=== PATIENT | male | born 1990 | race Hispanic/Latino ===

== ENCOUNTER 2018-09-12 13:03 | Emergency (ER) | payer OTHER | END 2018-09-12 13:36 | LOC: EDH 13:03 | DX: Z02.83 Encounter for blood-alcohol and blood-drug test (principal) ==

== ENCOUNTER 2024-01-08 22:16 | Emergency (ER) | payer BC ==
[~2024-01-08] VITALS: Ht 172.7 cm; Wt 87.1 kg
--- NOTE | 2024-01-08 22:46 | ERN ---
ED Note History of Present Illness Stated Complaint: C/O ABD PAIN TO LEFT SIDE Chief Complaint: Abdominal Pain Time Seen by MD: 22:19 Dictation: Patient is a 33-year-old male states he was work this morning when he suddenly had a hard sneeze, felt pain to his left lateral lower chest rib cage. He has not taken anything prior to arrival for pain have no abdominal pain no change in urination no fever no chills. No primary care doctor. Allergies: Coded Allergies: No Known Allergies (Unverified Allergy, Unknown, 01/08/24) Past Medical History Past Medical History: No Pertinent History Surgical History: Tonsillectomy RN Note Reviewed/Agreed w/PFSH: Yes Review of System Dictation CONSTITUTIONAL: Negative except for HPI HEAD/FACE: Negative except for HPI EENT: Negative except for HPI RESPIRATORY: Negative except for HPI left lateral inferior chest wall tenderness pain GASTROINTESTINAL/ABDOMINAL: Negative except for HPI GENITOURINARY: Negative except for HPI MUSCULOSKELETAL: Negative except for HPI INTEGUMENTARY: Negative except for HPI NEUROLOGICAL/PSYCH: Negative except for HPI HEMATOLOGIC/LYMPHATIC: Negative except for HPI All Systems Negative, Except as noted above. 13 point review of systems assessed and all negative except for above. Initial Vital Sign VS Vital Signs Date Time Temp Pulse Resp B/P (MAP) Pulse Ox O2 Delivery O2 Flow Rate FiO2 01/08/24 22:19 98.2 76 20 110/78 99 Room Air 01/08/24 23:18 0 21 Physical Exam Dictation Vital Signs reviewed General Appearance: Alert, oriented x 3, moderate acute distress, well devel oped, nourished. Head and Face: non-traumatic. Eyes: PERRL, pink conjunctivas, eyelid no trauma, anterior chamber with arcus se nilis. Ears: Pinnas intact and no signs of trauma or erythema ear canals clear and no discharge TM no erythema Nose: No discharge, no bleeding. Oropharynx: Mouth normal, tongue pink, pharynx clear,no erythema, tonsils no exudates, no abscesses noted, mucous membrane moist Neck: Supple, non-tender, no thyromegaly, no masses, no JVD, no bruits Breast:Deferred Chest: Moderate left lateral inferior chest wall tenderness with palpation tenderness, no crepitus, no paradoxical movement, no retractions no flail T bilateral breath sounds clear Lungs:Clear, well-ventilated, symmetric, no rales, no wheezing, no rhonchi, no stridor, good breath sounds bilaterally Heart: Regular rate, regular rhythm, no murmur, no gallops Vascular: no peripheral edema, Abdomen: Soft, positive bowel sounds, nondistended, no guarding, nontender, no rebound, no masses no hepatomegaly, no splenomegaly, no Zhou's sign, no hernias. Rectal: Deferred Genital: Deferred Neurological: Normal speech, motor function intact, sensory function intact Musculoskeletal: Neck nontender, full range of motion, back nontender, full range of motion, Extremities: nontender, full range of motion Skin: Color pink, dry, no turgor, no rash, no lacerations, no abrasions, no contusions. Lymphatic: Deferred Results (Laboratory/Radiology) Laboratory/Radiology Laboratory Tests Test 01/08/24 22:34 Urine Color LIGHT-YELLOW (YELLOW) Urine Appearance CLEAR (CLEAR) Urine pH 6.5 (5.0-8.0) Urine Specific Proctor 1.025 (1.001-1.031) Urine Protein NEGATIVE mg/dL (NEGATIVE) Urine Glucose (UA) NEGATIVE mg/dL (NEGATIVE) Urine Ketones NEGATIVE mg/dL (NEGATIVE) Urine Occult Blood NEGATIVE (NEGATIVE) Urine Nitrate NEGATIVE (NEGATIVE) Urine Bilirubin NEGATIVE mg/dL (NEGATIVE) Urine Urobilinogen 0.2 mg/dL (0.2-1.0) Urine Leukocyte Esterase NEGATIVE Yobany/uL RIBS UNI LT W PA CHEST 3+VWS REASON: Left lateral inferior chest wall tenderness after sneezed this morning. COMPARISON: None TECHNIQUE: Frontal projection of the chest was obtained. 3 images of left ribs were obtained. FINDINGS: No acute pulmonary infiltrates is seen. The heart is borderline in size. No acute displaced fracture of left ribs are noted. IMPRESSION: Findings as described above. Labs Reviewed?: Yes ED Course ED Course Orders Procedure Category Date Status Time Ribs Uni Lt W Pa RAD 01/08/24 Resulted Chest 3+Vws 22:44 Ketorolac 60mg/2ml PHA 01/08/24 Complete (Toradol 60mg/2ml) 23:00 Urinalysis Profile LAB 01/08/24 Complete 23:01 Current Medications Medications (Trade) Dose Ordered Sig/Lemuel Route PRN Reason Start Time Stop Time Status Last Admin Dose Admin Ketorolac Tromethamine (toRADol 60MG/ 2ML) 60 mg ONCE ONCE IM 01/08/24 23:00 01/08/24 23:01 DC 01/08/24 23:18 Vital Signs Date Time Temp Pulse Resp B/P (MAP) Pulse Ox O2 Delivery O2 Flow Rate FiO2 01/08/24 23:18 98.2 82 18 110/67 99 Room Air* 0 21 01/08/24 22:19 98.2 76 20 110/78 99 Room Air 0020 PAIN IS MARKEDLY IMPROVED AFTER TORADOL. DISCHARGED HOME WITH CHEST WALL STRAIN TOLD TO FOLLOW UP WITH HIS DOCTOR IN 1-2 DAYS Medical Decision Making MDM MEDICAL DISCHARGE MAKING BASED ON LEFT RIB X-RAY AND PAIN MANAGEMENT. RIB SERIES NEGATIVE DISCHARGED HOME WITH CHEST WALL STRAIN AND IBUPROFEN DX & DISP Disposition: Discharge Departure Impression: Primary Impression: Muscle strain of chest wall Condition: Stable Scripts Ibuprofen (Ibuprofen 800 mg Tab) 800 Mg Tab 800 MG PO Q8H PRN for fever or pain, #30 TAB 0 Refills Prov: ANGELA WATT NP 01/09/24 Additional Instructions: FOLLOW-UP WITH PRIMARY CARE PROVIDER IN 1 TO 2 DAYS. TAKE MEDICATIONS DIRECTED HERE IN THE EMERGENCY ROOM. OKAY TO CONTINUE HOME MEDICATIONS UNLESS OTHERWISE DISCUSSED DURING YOUR VISIT IN THE EMERGENCY ROOM TODAY. RETURN TO YOUR NEAREST EMERGENCY ROOM IF SYMPTOMS WORSEN OR IF THERE IS NO IMPROVEMENT. CALL 911 IF YOU NEED IMMEDIATE ASSISTANCE. TAKE TYLENOL OR MOTRIN [id number] NEEDED AND IF NO CONTRAINDICATIONS ARE PRESENT. INCREASE ORAL HYDRATION. A WOUND CULTURE OR URINE CULTURE WAS ORDERED HERE IN THE EMERGENCY ROOM DEPARTMENT PLEASE FOLLOW-UP WITH PRIMARY CARE PROVIDER AND ADVISE THEM TO GET REPEAT PORTS FROM OUR FACILITY. IF YOU HAD ANY SANDRA WRAP/SPLINTS THAT WERE APPLIED HERE, PLEASE DO NOT REMOVE THEM UNTIL YOU SEE YOUR PRIMARY CARE OR SPECIALTY. TAKE IBUPROFEN EVERY 8 HOURS WITH FOOD FOR THE NEXT TWO DAYS. FOLLOW UP WITH YOUR PRIMARY CARE DOCTOR CLINIC IN 1-2 DAYS. Referrals: SELF,REFERRAL (PCP) Time of Disposition: 00:24 I have reviewed the case, and I agree with, Diagnosis and Plan ANGELA WATT NP Jan 08, 2024 22:46
[2024-01-08 23:13] LABS: APPEARANCE,URINE CLEAR (CLEAR); BILIRUBIN,URINE NEGATIVE (NEGATIVE); COLOR,URINE LIGHT-YELLOW (YELLOW); GLUCOSE, URINE (UA) NEGATIVE (NEGATIVE); KETONES,URINE NEGATIVE (NEGATIVE); LEUKOCYTE ESTERASE ,URINE NEGATIVE Leu/uL (NEGATIVE); NITRATE,URINE NEGATIVE (NEGATIVE); OCCULT BLOOD,URINE NEGATIVE (NEGATIVE); PH,URINE 6.5 (5.0-8.0); PROTEIN,URINE NEGATIVE (NEGATIVE); UROBILINOGEN,URINE 0.2 mg/dL (0.2-1.0)
[2024-01-08 23:16] LABS: ADD UA MICROSCOPIC NO
[2024-01-08 23:18] VITALS: PULSE 82
[2024-01-08] MEDS: ketOROlac 60 MG VIAL (30MG/ML) IM ONE (23:18)
--- NOTE | 2024-01-08 23:44 | HMCIMG ---
RIBS UNI LT W PA CHEST 3+VWS REASON: Left lateral inferior chest wall tenderness after sneezed this morning. COMPARISON: None TECHNIQUE: Frontal projection of the chest was obtained. 3 images of left ribs were obtained. FINDINGS: No acute pulmonary infiltrates is seen. The heart is borderline in size. No acute displaced fracture of left ribs are noted. IMPRESSION: Findings as described above.
[2024-01-09] MEDS ORDERED: IBUP-2077 PO (00:25)
[2024-01-09 00:29] VITALS: BP 125/65; RESP 18; TEMP 98; O2SAT 99
[2024-01-10] MEDS ORDERED: OMEP20CA12 PO (16:22)
== END 2024-01-09 00:33 | disposition home or self-care (01) ==
LOC: EDH 22:16
DX: S29.011A Strain of muscle and tendon of front wall of thorax, initial encounter (principal); Z90.89 Acquired absence of other organs; X50.1XXA Overexertion from prolonged static or awkward postures, initial encounter; Y93.89 Activity, other specified; Y92.89 Other specified places as the place of occurrence of the external cause; Y99.8 Other external cause status
CPT/HCPCS: 99284; 81003; 71101; 96372; J1885

== ENCOUNTER 2024-01-10 14:25 | Emergency (ER) | payer BC ==
[~2024-01-10] VITALS: Ht 172.7 cm; Wt 86.6 kg
[~2024-01-10 14:25] MED LIST: IBUP-2077 PO
--- NOTE | 2024-01-10 15:08 | ERN ---
General Chief Complaint: Abdominal Pain Stated Complaint: ABD PAIN Time Seen by MD: 14:29 History of Present Illness Initial Comments 33-year-old male with a history of acid reflux presents to the ED for evaluation of abdominal pain onset 3 days ago. Patient reports bilateral flank pain, back pain, nausea, but denies any fever, vomiting, diarrhea, hematuria or any other associated symptoms at this time. Patient mentioned he has been experiencing bilateral flank pain also epigastric pain. Patient reports he drank alcohol on Friday. No other medical or surgical history mentioned. Allergies: Coded Allergies: No Known Allergies (Unverified Allergy, Unknown, 01/08/24) Home Meds Active Scripts Ibuprofen (Ibuprofen 800 mg Tab) 800 Mg Tab, 800 MG PO Q8H PRN for fever or pain, #30 TAB 0 Refills Prov:ANGELA WATT NP 01/09/24 Past Medical History Past Medical History: GERD Past Surgical History: Other Surgical History Other: INGUINAL HERANIA REPAIR ROS Dictation Constitutional: Negative for fever,chills, and weight loss Eyes: Negative for injury, pain,redness, and discharge ENT: Negative for injury,pain or swelling Cardiovascular: Negative for chest pain, palpitations, and edema Respiratory: Negative for shortness of breath, cough, and wheezing, Abdomen/GI: Positive for abdominal pain, epigastric pain, bilateral flank pain, nausea negative for vomiting, diarrhea, and constipation Back: Negative for injury and pain : Negative for injury, bleeding and discharge MS/Extremity: Negative for injury and deformity Skin: Negative for rash, and discoloration Neuro: Negative for headache, weakness, numbness, tingling, and seizure Psych: Negative for suicide ideation, homicidal ideation, and hallucinations Physical Exam Physical Exam Dictation General: awake, alert, NAD Head/Face: Normocephalic, atraumatic Eyes: PERRL, EOMI, vision at baseline ENT: oral cavity clear, TMs clear, no signs of infection Neck: Trachea midline, supple, no nuchal rigidity Cardiovascular: RRR, normal S1/S2, No MRGs, no JVD Respiratory: CTAB, no respiratory distress, No rales or wheezes Abdomen: Soft, mild epigastric tenderness, bilateral flank tenderness non- distended Skin: Warm, dry, normal turgor, no rash MS/Extremity: Pulses equal, no cyanosis, neurovascular intact, FROM Neuro: COAx4, GCS 15, strength 5/5, CN 2-12 intact, normal cerebellar exam, normal gait, Psych: Normal behavior, mood, and affect normal Results Laboratory and Microbiology Lab and Micro Result Laboratory Tests Test 01/10/24 15:10 White Blood Count 8.3 K/uL (4.8-10.8) Red Blood Count 5.10 MIL/uL (4.50-6.20) Hemoglobin 15.1 g/dL (14.0-18.0) Hematocrit 43.0 % (42-54) Mean Corpuscular Volume 84.3 fL (79-99) Mean Corpuscular Hemoglobin 29.6 pg (27.0-33.0) Mean Corpuscular Hemoglobin Concent 35.1 g/dL (32.0-36.0) Red Cell Distribution Width 12.0 % (11.0-15.5) Platelet Count 276 K/uL (130-400) Mean Platelet Volume 9.6 fL (7.5-10.5) Immature Granulocyte % (Auto) 0.4 % (0-1) Neutrophils (%) (Auto) 75.0 % (40.0-77.0) Lymphocytes (%) (Auto) 15.3 % (21.0-51.0) L Monocytes (%) (Auto) 7.7 % (3.0-13.0) Eosinophils (%) (Auto) 1.4 % (0.0-8.0) Basophils (%) (Auto) 0.2 % (0.0-5.0) Neutrophils # (Auto) 6.2 K/uL (1.8-7.7) Lymphocytes # (Auto) 1.3 K/uL (1.0-4.8) Monocytes # (Auto) 0.6 K/uL (0.1-1.0) Eosinophils # (Auto) 0.12 K/uL (0.00-0.70) Basophils # (Auto) 0.02 K/uL (0.00-0.20) Absolute Immature Granulocyte (auto 0.03 K/uL (0-1) Nucleated Red Blood Cells 0.0 % (0.0-0.19) Urine Color LIGHT-YELLOW (YELLOW) Urine Appearance HAZY (CLEAR) Urine pH 7.5 (5.0-8.0) Urine Specific [place] 1.011 (1.001-1.031) Urine Protein NEGATIVE mg/dL (NEGATIVE) Urine Glucose (UA) NEGATIVE mg/dL (NEGATIVE) Urine Ketones NEGATIVE mg/dL (NEGATIVE) Urine Occult Blood NEGATIVE (NEGATIVE) Urine Nitrate NEGATIVE (NEGATIVE) Urine Bilirubin NEGATIVE mg/dL (NEGATIVE) Urine Urobilinogen 0.2 mg/dL (0.2-1.0) Urine Leukocyte Esterase NEGATIVE Yobany/uL Urine RBC 0-1 /HPF (0-1) Urine WBC 0-1 /HPF (0-1) Urine Amorphous Crystals (Auto) FEW /LPF (None Seen) Urine Bacteria RARE /HPF (None Seen) Sodium Level 140 mmol/L (136-145) Potassium Level 3.7 mmol/L (3.5-5.1) Chloride Level 102 mmol/L (101-111) Carbon Dioxide Level 33 mmol/L (21-32) H Blood Urea Nitrogen 10 mg/dL (7-18) Creatinine 0.9 mg/dL (0.5-1.3) Glomerular Filtration Rate Calc 115 mL/min (>90) Random Glucose 100 mg/dL (70-105) Total Calcium 9.1 mg/dL (8.5-10.1) Total Bilirubin 0.7 mg/dL (0.2-1.0) Direct Bilirubin 0.1 mg/dL (0.0-0.3) Aspartate Amino Transf (AST/SGOT) 29 U/L (10-37) Alanine Aminotransferase (ALT/SGPT) 110 U/L (12-78) H Alkaline Phosphatase 64 U/L (50-136) Total Protein 7.6 g/dL (6.0-8.3) Albumin 4.0 g/dL (3.5-5.0) Lipase 43 U/L (16-77) MDM CC: Abdominal pain Historian: Patient Comorbidities: GERD Limitations by social determinants of health: None Vital signs are stable Differential diagnosis includes GERD, ulcer, pancreatitis, biliary disease, perforation, other. Clinical exam patient does have some abdominal tenderness in the upper area. No flank discomfort. Labs ordered and interpreted by me: CBC is normal, BNP is normal, liver enzymes are normal, lipase is normal, urinalysis is normal. CT scan of the abdomen and pelvis with contrast does not show any free air perforation or obvious abnormalities as independently interpreted by me. I did offer the patient pain control here in the ER, but reports that he had mostly wants diagnostics to make sure there is nothing significant going on. At this point in time patient appears safe for discharge. We will DC with [id number] medications recommend PCP follow up as needed. REASON: upper abd pain, radiates to back ORDERING PHYSICIAN: ABDI MERCADO DO PROCEDURE: ABD PEL W - CT ABDOMEN/PELVIS W/CONTRAST Exam Type: CT ABDOMEN/PELVIS W/CONTRAST Clinical Information: upper abd pain, radiates to back Comparison: None Contrast: 100 cc's Isovue 370 IV, no complications or adverse reactions CT Dose Index (CTDI): 31.60 mGy Dose Length Product (DLP): 1740.80 total mGy-cm Findings: No evidence of nephro or ureterolithiasis is found. No hydronephrosis or ureteral dilatation is seen. The lung bases are clear. The stomach is unremarkable. It shows no wall thickening. No gross ulceration is seen. It is not overly distended. There are no surrounding inflammatory changes. No wall lesions are identified to suggest cancer. The spleen is unremarkable. It is not enlarged. The pancreas shows normal anatomy. It is not fatty replaced. It shows no lesions. The pancreatic duct is not dilated. The gallbladder is unremarkable. It shows no cholelithiasis. The gallbladder wall is normal in thickness. There is no pericholecystic fluid. The is no acute or chronic inflammation noted. The adrenal glands are unremarkable. There is no enlargement. No lesions are noted. The liver is unremarkable. It shows no focal masses. The appendix is unremarkable. It shows no evidence of inflammation. No appendicolith is seen. The small bowel is unremarkable. There is no evidence of dilatation to suggest obstruction. No evidence of adynamic ileus is seen. There is no small bowel wall thickening to suggest enteritis. The colon is unremarkable. The urinary bladder is unremarkable. There is no wall thickening to suggest tumor or inflammation. There are no intraluminal calculi. There are no diverticula. There is no evidence of chronic bladder outlet obstruction. There is no evidence of urinary bladder distention to suggest urinary retention. The other pelvic structures are unremarkable. The bony and vascular structures are unremarkable for the patient's age. IMPRESSION: NEGATIVE CT SCAN OF THE ABDOMEN AND PELVIS WITH ORAL AND IV CONTRAST. This study was performed using dose reduction techniques to include automated exposure control and/or adjustment of the mA and/or kV according to patient size. DICTATED BY: ALEXUS WILDER MD DATE: 01/10/24 1608 MDM: Differential diagnosis: Pancreatitis, GERD, ulcer Previous outside records reviewed: Old ER visits. Need for hospitalization: Patient does not meet criteria for hospitalization. Need for emergency major/minor surgery: No Patient's prior external medical records from other ER visits were reviewed by me as indicated. Prior testing and results from previous visits were reviewed. Prior tests were taken into account with medical decision making and resource utilization, independent historian/historians were used to obtain complete medical history. I independently interpreted the test that were performed, results were reviewed by me and considered findings on radiology if ordered. Medical management and examination interpretation discussions were had by me with other qualified healthcare professionals as indicated for the patient's care. ED Course Orders Procedure Category Date Status Time Cbc With Differential LAB 01/10/24 Complete 14:31 Basic Metabolic Panel LAB 01/10/24 Complete 14:31 Hepatic Function Panel LAB 01/10/24 Complete 14:31 Urinalysis Profile LAB 01/10/24 Complete 14:31 Lipase LAB 01/10/24 Complete 14:31 Ct Abdomen/Pelvis CT 01/10/24 Resulted W/Contrast 15:09 Iohexol (Omnipaque) PHA 01/10/24 Complete 15:48 Current Medications Medications (Trade) Dose Ordered Sig/Lemuel Route PRN Reason Start Time Stop Time Status Last Admin Dose Admin Iohexol (Omnipaque) 75 ml STK-MED ONCE IV 01/10/24 15:48 01/10/24 15:48 DC Vital Signs Date Time Temp Pulse Resp B/P (MAP) Pulse Ox O2 Delivery O2 Flow Rate FiO2 01/10/24 15:26 98.2 71 20 120/68 100 Room Air* 0 21 01/10/24 15:01 98.2 82 16 134/72 99 Room Air* 0 21 01/10/24 14:28 98.2 82 16 134/72 99 Room Air 0 DX & DISP Disposition: Discharge Departure Impression: Primary Impression: Epigastric pain Condition: Stable Scripts Omeprazole (Omeprazole) 20 Mg Capsule. 1 CAP PO DAILY for 14 Days, #14 CAP 0 Refills Prov: ABDI MERCADO DO 01/10/24 Additional Instructions: There are no dangerous findings on your workup today. It is unclear what is causing your symptoms, but it may be related to stomach irritation/inflammation. I recommend that you take a proton pump inhibitor medication such as omeprazole. I have given you a prescription for the next two weeks. Take as prescribed. The CT scan of your abdomen and pelvis with contrast did not show any dangerous findings. Your lab work (CBC, BMP, liver function tests, lipase, urinalysis) is normal. I recommend diet modification. Avoid alcohol. Avoid spicy foods. Avoid large heavy meals. Avoid eating late at night. If you continue with symptoms, I recommend he follow up with the primary doctor as an outpatient. You may need further outpatient studies. Referrals: SELF,REFERRAL (PCP) I have reviewed, & agreed with my scribe's, documentation. (Entered by Bee Eli, acting as a scribe for Dr. Mercado) I personally scribed for ABDI MERCADO DO ([email or web address]) on 01/10/24 at 15:08. Electronically submitted by Bee Eli ([email or web address]). ABDI MERCADO DO Jan 10, 2024 15:08
[2024-01-10 15:20] LABS: BASOPHILS # (AUTO) 0.02 K/uL (0.00-0.20); BASOPHILS % (AUTO) 0.2 % (0.0-5.0); EOSINOPHILS # (AUTO) 0.12 K/uL (0.00-0.70); EOSINOPHILS % (AUTO) 1.4 % (0.0-8.0); IMMATURE GRANULOCYTE ABSOLUTE 0.03 K/uL (0-1); LYMPHOCYTES # (AUTO) 1.3 K/uL (1.0-4.8); LYMPHOCYTES % (AUTO) 15.3 % (21.0-51.0); MEAN CORPUSCULAR HEMOGLOBIN 29.6 pg (27.0-33.0); MEAN CORPUSCULAR HGB CONC 35.1 g/dL (32.0-36.0); MEAN CORPUSCULAR VOLUME 84.3 fL (79-99); MONOCYTES # (AUTO) 0.6 K/uL (0.1-1.0); MONOCYTES % (AUTO) 7.7 % (3.0-13.0); NEUTROPHILS # (AUTO) 6.2 K/uL (1.8-7.7); PLATELET COUNT (AUTO) 276 K/uL (130-400); WHITE BLOOD COUNT (AUTO) 8.3 K/uL (4.8-10.8)
[2024-01-10 15:21] LABS: BILIRUBIN,URINE NEGATIVE (NEGATIVE); COLOR,URINE LIGHT-YELLOW (YELLOW); GLUCOSE, URINE (UA) NEGATIVE (NEGATIVE); KETONES,URINE NEGATIVE (NEGATIVE); LEUKOCYTE ESTERASE ,URINE NEGATIVE Leu/uL (NEGATIVE); NITRATE,URINE NEGATIVE (NEGATIVE); OCCULT BLOOD,URINE NEGATIVE (NEGATIVE); PH,URINE 7.5 (5.0-8.0); PROTEIN,URINE NEGATIVE (NEGATIVE); UROBILINOGEN,URINE 0.2 mg/dL (0.2-1.0)
[2024-01-10 15:24] LABS: ADD UA MICROSCOPIC YES; APPEARANCE,URINE HAZY (CLEAR)
--- NOTE | 2024-01-10 15:27 | NUR ---
PENDING GFR RESULTS, IV SITE, & CONSENT FOR CT EXAM.
[2024-01-10 15:31] LABS: CREATININE 0.9 mg/dL (0.5-1.3); POTASSIUM 3.7 mmol/L (3.5-5.1)
[2024-01-10 15:32] LABS: BACTERIA,URINE RARE /HPF (None Seen); RBC,URINE 0-1 /HPF (0-1); WBC,URINE 0-1 /HPF (0-1)
[2024-01-10 15:36] LABS: BILIRUBIN,DIRECT 0.1 mg/dL (0.0-0.3); BILIRUBIN,TOTAL 0.7 mg/dL (0.2-1.0); TOTAL PROTEIN, SERUM 7.6 g/dL (6.0-8.3)
[2024-01-10] MEDS ORDERED: IOHEXOL-350 75 ML VIAL IV ONE (15:48)
--- NOTE | 2024-01-10 16:11 | HMCIMG ---
Exam Type: CT ABDOMEN/PELVIS W/CONTRAST Clinical Information: upper abd pain, radiates to back Comparison: None Contrast: 100 cc's Isovue 370 IV, no complications or adverse reactions CT Dose Index (CTDI): 31.60 mGy Dose Length Product (DLP): 1740.80 total mGy-cm Findings: No evidence of nephro or ureterolithiasis is found. No hydronephrosis or ureteral dilatation is seen. The lung bases are clear. The stomach is unremarkable. It shows no wall thickening. No gross ulceration is seen. It is not overly distended. There are no surrounding inflammatory changes. No wall lesions are identified to suggest cancer. The spleen is unremarkable. It is not enlarged. The pancreas shows normal anatomy. It is not fatty replaced. It shows no lesions. The pancreatic duct is not dilated. The gallbladder is unremarkable. It shows no cholelithiasis. The gallbladder wall is normal in thickness. There is no pericholecystic fluid. The is no acute or chronic inflammation noted. The adrenal glands are unremarkable. There is no enlargement. No lesions are noted. The liver is unremarkable. It shows no focal masses. The appendix is unremarkable. It shows no evidence of inflammation. No appendicolith is seen. The small bowel is unremarkable. There is no evidence of dilatation to suggest obstruction. No evidence of adynamic ileus is seen. There is no small bowel wall thickening to suggest enteritis. The colon is unremarkable. The urinary bladder is unremarkable. There is no wall thickening to suggest tumor or inflammation. There are no intraluminal calculi. There are no diverticula. There is no evidence of chronic bladder outlet obstruction. There is no evidence of urinary bladder distention to suggest urinary retention. The other pelvic structures are unremarkable. The bony and vascular structures are unremarkable for the patient's age. IMPRESSION: NEGATIVE CT SCAN OF THE ABDOMEN AND PELVIS WITH ORAL AND IV CONTRAST. This study was performed using dose reduction techniques to include automated exposure control and/or adjustment of the mA and/or kV according to patient size.
[2024-01-10] MEDS ORDERED: OMEP20CA12 PO (16:22)
[2024-01-10 16:57] VITALS: BP 122/71; PULSE 78; RESP 18; TEMP 98; O2SAT 99
== END 2024-01-10 17:32 | disposition home or self-care (01) ==
LOC: EDH 14:25
DX: K21.9 Gastro-esophageal reflux disease without esophagitis (principal); R10.13 Epigastric pain
CPT/HCPCS: 99284; 74177; 80076; 80048; 83690; 85025; 81001; 36415; Q9967